=== PATIENT | female | born 1970 | race Caucasian/White ===

== ENCOUNTER 2020-09-09 06:05 | Day surgery (SDC) | payer MEDICARE, OTHER ==
[2020-09-06 11:00] LABS: COVID AG,FIA SOURCE NASOPHARYNGEAL
[~2020-09-09] VITALS: Ht 170.2 cm; Wt 90.5 kg
[2020-09-09] MEDS ORDERED: SODIUM CHLORIDE 0.9% 1,000 ML ONE (06:14)
[2020-09-09] MEDS ORDERED: SODIUM CHLORIDE 0.9% 1,000 ML IV ONE (06:30)
[2020-09-09] MEDS ORDERED: FentaNYL CITRATE PF 100 MCG/2 ML VIAL ONE (08:03)
[2020-09-09] MEDS ORDERED: MIDAZOLAM HCL 2 MG/2 ML VIAL ONE (08:03)
[2020-09-09] MEDS ORDERED: PRED10 PO (08:12)
[2020-09-09] MEDS ORDERED: ICOS0.5C PO (08:12)
[2020-09-09] MEDS ORDERED: CHOL100018 PO (08:12)
[2020-09-09] MEDS ORDERED: METO50 PO (08:12)
[2020-09-09] MEDS ORDERED: FLUT220HFA IH (08:12)
[2020-09-09] MEDS ORDERED: METH10 PO (08:12)
[2020-09-09] MEDS ORDERED: TIOT185 IH (08:12)
[2020-09-09] MEDS ORDERED: MethylPREDNISolone SOD SUCC 125 MG/2 ML VIAL IVP ONE (09:30)
[2020-09-09] MEDS ORDERED: MethylPREDNISolone SOD SUCC 125 MG/2 ML VIAL ONE (09:52)
[2020-09-09] MEDS ORDERED: BENZOCAINE 20% 50 MCG/SPRAY 57 GM ONE (16:12)
[2020-09-09] MEDS ORDERED: LIDOCAINE 2% 30 ML JELLY ONE (16:12)
[2020-09-09] MEDS ORDERED: ALBUTEROL SULFATE 2.5 MG/0.5 ML NEB SOLUTION NEB ONE (16:12)
[2020-09-09] MEDS ORDERED: OXYGEN THERAPY IH SCH (20:00)
== END 2020-09-09 11:05 | disposition home or self-care (01) ==
LOC: SURGERY 06:05
PROVIDERS: ATTEND Internal Medicine Critical Care Medicine
DX: J38.4 Edema of larynx (principal); B37.0 Candidal stomatitis; Z88.6 Allergy status to analgesic agent; I10 Essential (primary) hypertension; G47.33 Obstructive sleep apnea (adult) (pediatric); Z79.899 Other long term (current) drug therapy; Z98.890 Other specified postprocedural states
CPT/HCPCS: 31623; 31624; 71045; 87015; 87070; 87101; 87205; 87206; 87220; 87426; 88108; 88184; 88185; 88312; C9803; J2250; J2930; J3010; J7030; J7613